=== PATIENT | male | born 1955 | race Caucasian/White ===

== ENCOUNTER 2018-03-12 17:28 | Emergency (ER) | payer BC ==
--- NOTE | 2018-03-12 17:55 | EDM.PDOC ---
ED HPI GENERAL MEDICAL PROBLEM - General Chief Complaint: Respiratory Problem Stated Complaint: PT HAS DIFFICULTY BREATHING Time Seen by Provider: 03/12/18 17:33 Source of Information: Reports: Patient History Limitations: Reports: No Limitations - History of Present Illness INITIAL COMMENTS - FREE TEXT/NARRATIVE: HISTORY AND PHYSICAL: History of present illness: Patient is a 62-year-old male who presents to the emergency room today with complaints of cough and chest congestion. States he has a history of seasonal allergies and takes a rescue inhaler for this, over the past several days he has had to use this frequently and is concerned it may require antibiotics. Denies any fever, chills, chest pain, abdominal pain, nausea, vomiting, diarrhea or constipation. Denies any previous history of asthma, COPD or emphysema. No smoking history. Review of systems: As per history of present illness and below otherwise all systems reviewed and negative. Past medical history: As per history of present illness and as reviewed below otherwise noncontributory. Surgical history: As per history of present illness and as reviewed below otherwise noncontributory. Social history: No reported history of drug or alcohol abuse. Family history: As per history of present illness and as reviewed below otherwise noncontributory. Physical exam: General: Developed and well-nourished 62-year-old male. Alert and oriented. Nontoxic appearing and in no acute distress. HEENT: Atraumatic, normocephalic, pupils equal and reactive bilaterally, negative for conjunctival pallor or scleral icterus, mucous membranes moist, throat clear, neck supple, nontender, trachea midline. No drooling or trismus noted. No meningeal signs Lungs: Right sided expiratory wheezing (upper and lower), breath sounds equal bilaterally, chest nontender. Heart: S1S2, regular rate and rhythm without overt murmur Abdomen: Soft, nondistended, nontender. Negative for masses or hepatosplenomegaly. Negative for costovertebral tenderness. Pelvis: Stable nontender. Genitourinary: Deferred. Rectal: Deferred. Skin: Intact, warm, dry. No lesions or rashes noted. Extremities: Atraumatic, negative for cords or calf pain. Neurovascular unremarkable. Neuro: Awake, alert, oriented. Cranial nerves II through XII unremarkable. Cerebellum unremarkable. Motor and sensory unremarkable throughout. Exam nonfocal. Notes: Patient declined an x-ray at this time. States he doesn't want any lab work at this time, "not necessary". He is willing to have Solu-Medrol and DuoNeb. We'll give him a prescription. Supportive care measures were reviewed and discussed. Signs and symptoms that prompt him to return to the emergency room reviewed as well. He voices understanding and is agreeable to plan of care. Denies any further questions or concerns. Diagnostics: CXR (Declined) Therapeutics: Zithromycin, Solumedrol, Duo Neb Prescription: Medrol dosepak Z-pack Impression: Bronchitis Plan: 1. You received your first dose of antibiotic and steriod here today in the ER. Please start your prescription medications tomorrow. 2. As we discussed please continue using her inhaler as directed. 3. Follow-up with your primary care provider in the next 1-2 days. Return to the ED as needed and as discussed. Definitive disposition and diagnosis as appropriate pending reevaluation and review of above. - Related Data Allergies Allergy/AdvReac Type Severity Reaction Status Date / Time No Known Allergies Allergy Verified 03/12/18 17:43 Home Meds: Home Meds Albuterol [Ventolin HFA] 2 puff INH ASDIRECTED PRN 03/12/18 [History] Lisinopril/Hydrochlorothiazide [Lisinopril-HCTZ 10-12.5 MG] 1 tab PO DAILY 03/12 [History] Simvastatin 1 tab PO DAILY 03/12/18 [History] ED ROS GENERAL - Review of Systems Review Of Systems: ROS reveals no pertinent complaints other than HPI. ED EXAM, GENERAL - Physical Exam Exam: See Below (See dictation) Course - Vital Signs Last Recorded V/S: Last Vital Signs Temp 97.6 F 03/12/18 17:40 Pulse 116 H 03/12/18 17:40 Resp 18 03/12/18 17:40 BP 139/86 03/12/18 17:40 Pulse Ox 94 L 03/12/18 17:40 - Orders/Labs/Meds Orders: Active Orders 24 hr Category Date Time Status RT Aerosol Therapy [RC] ASDIRECTED Care 03/12/18 17:56 Ordered Azithromycin [Zithromax] Med 03/12/18 18:00 Ordered 500 mg PO Q24H Medication Orders Azithromycin (Zithromax) 500 mg PO Q24H NEELA Last Admin: 03/12/18 18:03 Dose: 500 mg Meds: Medications Generic Name Dose Route Start Last Admin Trade Name Freq PRN Reason Stop Dose Admin Azithromycin 500 mg 03/12/18 18:00 03/12/18 18:03 Zithromax PO 500 mg Q24H NEELA Administration Discontinued Medications Generic Name Dose Route Start Last Admin Trade Name Freq PRN Reason Stop Dose Admin Albuterol/Ipratropium 3 ml 03/12/18 17:56 03/12/18 18:03 Duoneb 3.0-0.5 Mg/3 Ml NEB 03/12/18 17:57 3 ml ONETIME ONE Administration Methylprednisolone Sodium Succinate 125 mg 03/12/18 17:59 03/12/18 18:03 Solu-Medrol IM 03/12/18 18:00 125 mg ONETIME ONE Administration Methylprednisolone Sodium Succinate Confirm 03/12/18 18:00 03/12/18 18:03 Solu-Medrol Administered 03/12/18 18:01 Not Given Dose 125 mg .ROUTE .STK-MED ONE Departure - Departure Time of Disposition: 18:09 Disposition: Home, Self-Care 01 Clinical Impression: Bronchitis - Discharge Information Instructions: Acute Bronchitis, Adult, [id number] Referrals: PCP,None [Primary Care Provider] - Forms: ED Department Discharge Additional Instructions: The following information is given to patients seen in the emergency department who are being discharged to home. This information is to outline your options for follow-up care. We provide all patients seen in our emergency department with a follow-up referral. The need for follow-up, as well as the timing and circumstances, are variable depending upon the specifics of your emergency department visit. If you don't have a primary care physician on staff, we will provide you with a referral. We always advise you to contact your personal physician following an emergency department visit to inform them of the circumstance of the visit and for follow-up with them and/or the need for any referrals to a consulting specialist. The emergency department will also refer you to a specialist when appropriate. This referral assures that you have the opportunity for follow-up care with a specialist. All of these measure are taken in an effort to provide you with optimal care, which includes your follow-up. Under all circumstances we always encourage you to contact your private physician who remains a resource for coordinating your care. When calling for follow-up care, please make the office aware that this follow-up is from your recent emergency room visit. If for any reason you are refused follow-up, please contact the [facility] Emergency Department at and asked to speak to the emergency department charge nurse. [facility] [address] [place] [id number] 1. You received your first dose of antibiotic and steroid here today in the ER. Please start your prescription medications tomorrow. 2. As we discussed please continue using her inhaler as directed. 3. Follow-up with your primary care provider in the next 1-2 days. Return to the ED as needed and as discussed. - My Orders Last 24 Hours: My Active Orders 03/12/18 17:56 RT Aerosol Therapy [RC] ASDIRECTED 03/12/18 18:00 Azithromycin [Zithromax] 500 mg PO Q24H - Assessment/Plan Last 24 Hours: My Active Orders 03/12/18 17:56 RT Aerosol Therapy [RC] ASDIRECTED 03/12/18 18:00 Azithromycin [Zithromax] 500 mg PO Q24H
[2018-03-12] MEDS ORDERED: Albuterol/Ipratropium 3.0-0.5 MG/3 ML Neb Soln NEB ONE (17:56)
[2018-03-12] MEDS ORDERED: methylPREDNISolone Sodium Succinate 125 MG/2 ML SDV IM ONE (17:59)
[2018-03-12] MEDS ORDERED: methylPREDNISolone Sodium Succinate 125 MG/2 ML SDV ONE (18:00)
[2018-03-12] MEDS ORDERED: Azithromycin 250 MG Tab PO SCH (18:00)
== END 2018-03-12 18:21 | disposition home or self-care (01) ==
LOC: MW.ED 17:28
DX: J40 Bronchitis, not specified as acute or chronic (principal); I10 Essential (primary) hypertension; Z79.899 Other long term (current) drug therapy
CPT/HCPCS: 94640; 96372; 99283; A9270; J2930; J7620-GY